=== PATIENT | female | born 1985 | race Caucasian/White ===

== ENCOUNTER 2016-07-12 14:36 | Emergency (ER) | payer OTHER ==
[~2016-07-12] VITALS: Ht 172.7 cm; Wt 122.0 kg
[2016-07-12 14:38] VITALS: Ht 172.7 cm; Wt 122.0 kg
--- NOTE | 2016-07-12 15:21 | ERA ---
ER Documentation Chief Complaint Date/Time DATE: 07/12/16 TIME: 15:20 Chief Complaint abcess on labia HPI Patient is a 31-year-old female presenting with a 5 day history of a slightly discolored bump on labia. Patient denies any pain, itch, discharge or bleeding. Patient denies any dyspareunia, dysuria or changes in bowel or bladder habits. Patient has not done anything to relieve the symptoms except for enhanced hygiene with soap during showers. Patient first noticed a bump after shaving. Patient is in a monogamous relationship of 6 months with a boyfriend. Boyfriend is currently not with her. ROS All systems reviewed and are negative except as per history of present illness. Allergies Allergies: Coded Allergies: amoxicillin (Verified Allergy, Mild, ITCHINESS, 07/12/16) Physical Exam Vitals Vital Signs Date Time Temp Pulse Resp B/P Pulse Ox O2 Delivery O2 Flow Rate FiO2 07/12/16 14:38 99.2 84 18 130/77 98 Physical Exam Const: Obese 31-year-old female Head: Atraumatic Eyes: Normal Conjunctiva ENT: Normal External Ears, Nose and Mouth. Neck: Full range of motion..~ No meningismus. Resp: Clear to auscultation bilaterally Cardio: Regular rate and rhythm, no murmurs Abd: Soft, non tender, non distended. Normal bowel sounds Skin: No petechiae or rashes Back: No midline or flank tenderness Ext: No cyanosis, or edema Neur: Awake and alert Psych: Normal Mood and Affect Procedures/MDM Patient is a 31-year-old female presents complaining of a pump on her labia majora. Patient states that she is monogamous with one partner for the past 6 months. Patient denies any pain, and she, discharge or rash. Patient denies any dysuria, hematuria, dyspareunia patient states that the lump has been there for about 5 days. On examination the lump is minimally appreciable and roughly 1 mm to 2 mm in diameter on the right upper half of the labia majora. Color changes are minimal if any. At this time I do not believe there to be any bacterial infection or sexually transmitted disease. The most likely diagnosis is a furuncle. I told the patient that if symptoms worsen or change to return to emergency department or see a central supply supervisor. I recommend that the patient see a central supply supervisor within the next 1-3 days. Departure Condition: Stable Additional Instructions: Follow-up with central supply supervisor in the next 1-3 days. Return to emergency room if worsening symptoms. VIC BETANCOURT PA-C Jul 12, 2016 15:21
== END 2016-07-12 17:35 | disposition home or self-care (01) ==
LOC: FTE 14:36
DX: N89.8 Other specified noninflammatory disorders of vagina (principal)
CPT/HCPCS: 99282

== ENCOUNTER 2016-11-10 10:44 | Emergency (ER) | payer MEDICAID, OTHER ==
[~2016-11-10] VITALS: Wt 118.0 kg
[2016-11-10] MEDS ORDERED: ONDANSETRON (ODT) 4 MG TAB ODT STA (10:59)
[2016-11-10] MEDS ORDERED: FAMOTIDINE 20 MG TAB PO ONE (11:00)
[2016-11-10 11:27] LABS: BASOPHIL # 0.1 10^3/ul (0.0-0.1); BASOPHILS % 0.5 % (0.0-2.0); EOSINOPHILS # 0.2 10^3/ul (0.0-0.5); HEMATOCRIT 42.5 % (37.0-47.0); HEMOGLOBIN 13.8 g/dl (12.0-16.0); LYMPHOCYTES # 2.9 10^3/ul (0.8-2.9); MEAN CORPUSCULAR HEMOGLOBIN 30.3 pg (29.0-33.0); MEAN CORPUSCULAR HGB CONC 32.5 g/dl (32.0-37.0); MEAN CORPUSCULAR VOLUME 93.4 fl (82.0-101.0); MEAN PLATELET VOLUME 11.3 fl (7.4-10.4); MONOCYTE # 0.7 10^3/ul (0.3-0.9); MONOCYTES % 6.4 % (0.0-11.0); NEUTROPHIL # 7.1 10^3/ul (1.6-7.5); NEUTROPHILS % 64.7 % (39.0-77.0); PLATELET COUNT 336 10^3/UL (140-415); RED BLOOD COUNT 4.55 10^6/ul (4.20-5.40); RED CELL DISTRIBUTION WIDTH 13.1 % (11.5-14.5)
[2016-11-10 11:43] LABS: ADD UMIC YES; UR ASCORBIC ACID 20 mg/dL (NEGATIVE); UR BILIRUBIN (Dip) NEGATIVE (NEGATIVE); UR BLOOD (Dip) NEGATIVE (NEGATIVE); UR CLARITY SLIGHTLY CLOUDY (CLEAR); UR COLOR YELLOW (YELLOW); UR GLUCOSE (Dip) NEGATIVE (NEGATIVE); UR KETONES (Dip) NEGATIVE (NEGATIVE); UR LEUKOCYTE ESTERASE (Dip) TRACE Leu/ul (NEGATIVE); UR MUCUS FEW /HPF (NONE SEEN); UR NITRITE (Dip) NEGATIVE (NEGATIVE); UR RBC 1 /HPF (0-5); UR SPECIFIC GRAVITY (Dip) 1.018 (1.003-1.030); UR SQUAMOUS EPITHELIAL CELL FEW /HPF (FEW); UR TOTAL PROTEIN (Dip) NEGATIVE (NEGATIVE); UR UROBILINOGEN (Dip) NEGATIVE (NEGATIVE)
[2016-11-10 11:47] LABS: ALBUMIN 4.8 g/dl (3.3-4.9); ALBUMIN/GLOBULIN RATIO 1.33; BILIRUBIN,INDIRECT 0.2 mg/dl (0-1.1); BILIRUBIN,TOTAL 0.2 mg/dl (0.2-1.3); CALCIUM 9.6 mg/dl (8.4-10.2); CREATININE 0.95 mg/dl (0.44-1.00); POTASSIUM 3.4 mmol/L (3.5-5.1); TOTAL PROTEIN 8.4 g/dl (6.1-8.1)
[2016-11-10] MEDS ORDERED: AZIT500T3 PO (12:36)
[2016-11-10] MEDS ORDERED: ONDA4TAB14 PO (12:36)
[2016-11-10] MEDS ORDERED: FAMO-96 PO (12:36)
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
== END 2016-11-10 14:45 | disposition home or self-care (01) ==
LOC: FTE 10:44
DX: R11.10 Vomiting, unspecified (principal); R19.7 Diarrhea, unspecified; F41.9 Anxiety disorder, unspecified; E66.01 Morbid (severe) obesity due to excess calories
CPT/HCPCS: 80053; 81001; 83690; 85025; Z7610; 36415; 99284